=== PATIENT | male | born 1960 | race Caucasian/White ===

== ENCOUNTER 2021-04-11 10:50 | Inpatient (IN) | payer SELFPAY ==
[2021-04-11] VITALS (8 sets, daily range): BP systolic 134–155; BP diastolic 75–117; PULSE 62–85; RESP 6–17; TEMP 36.4–37; O2SAT 94–100; BMI 25.7; BMI 24.4
--- NOTE | 2021-04-11 11:21 | EKG12_ITS ---
Test Reason : ABN LABS Blood Pressure : / mmHG Vent. Rate : 065 BPM Atrial Rate : 065 BPM P-R Int : 156 ms QRS Dur : 094 ms QT Int : 404 ms P-R-T Axes : 032 009 038 degrees QTc Int : 420 ms Normal sinus rhythm Normal ECG Confirmed by ALENA DELGADO, JAM ([id number]), editor newspaper YASIR FRIEDMAN ([id number]) on 04/13/2021 9:03:06 AM Referred By: CHERISE/GRISELDA Confirmed By:JAM CARVAJAL MD
[2021-04-11] MEDS: 0.9% Normal Saline 1,000 ML 1000 ML IV (11:26)
[2021-04-11 11:28] LABS: Absolute Lymphocyte Count 0.35 X10^3/uL (0.83-4.51); Absolute Neutrophil Count 5.6 X10^3/uL (2.0-7.7); Basophil# 0.01 X10^3/uL; Basophil% 0.2 % (0-1); Eosinophil# 0.01 X10^3/uL; Eosinophils% 0.2 % (0-5); Hematocrit 38.1 % (40-54); Hemoglobin 13.4 g/dL (13.0-16.5); Lymphocyte # 0.35 X10^3/ul (0.83-4.51); Lymphocyte % 5.3 % (19-41); Mean Corp Hgb Conc 35.2 g/dL (32-36); Mean Corpuscular Hgb 29.8 pg (27.0-32.0); Mean Corpuscular Volume 84.7 fL (80-94); Mean Platelet Vol. 8.6 fl (6.2-12.0); Monocyte# 0.67 X10^3/uL; Monocyte% 10.1 % (0-10); NRBC Flagged by Analyzer 0 % (0-5); Neutrophil # 5.57 X10^3/uL (2.7-7.7); Neutrophil % 83.7 % (47-70); POSITIVE DIFFERENTIAL YES; Platelet Count 154 K/mm3 (150-450); RBC Distribution Width CV 11.9 % (11.6-14.6); RBC Distribution Width SD 36.1 fl (35.1-43.9); White Blood Count 6.6 K/mm3 (4.4-11.0)
[2021-04-11 11:29] LABS: Differential Indicated SCAN CRITERIA MET
[2021-04-11 11:42] LABS: ALB/GLOB Ratio 0.7 RATIO (0.9-2.4); AST(SGOT) 17 U/L (15-37); Alanine Aminotransfer ALT/SGPT 38 U/L (16-61); Albumin, Serum 3.3 g/dL (3.2-5.0); Alkaline Phosphatase 37 U/L (45-117); Anion Gap 11 (5-15); BUN 57 mg/dL (7-18); BUN/Creat Ratio 12.3 RATIO (10-20); Calcium,Total 9.3 mg/dL (8.5-10.1); Chloride 103 mmol/L (98-107); Creatinine, Serum 4.62 mg/dL (0.70-1.30); EST Glomerular Filtration Rate 14 mL/min (>60); Est Glom Filt Rate - Afr Amer 17 mL/min (>60); Estimated Creatinine Clearance 19.13 ml/min; Globulin 4.5 g/dL (2.2-4.2); Glucose 116 mg/dL (74-106); Potassium 3.3 mmol/L (3.5-5.1); Protein, Total 7.8 g/dL (6.4-8.2); Sodium Level 142 mmol/L (136-145)
[2021-04-11 11:48] LABS: Platelet Estimate ADEQUATE (ADEQ); Red Cell Morphology NORM C+C NORMAL (NORM C&C)
--- NOTE | 2021-04-11 11:55 | EDS_ITS ---
HPI History of Present Illness Chief Complaint: Abn Labs Informant: patient Onset/Context/Timing Onset: Weeks (1) Context: Gradual Onset Timing: Continuous Quality: Weakness Location: Generalized Worsened by: Nothing Relieved by: Nothing Narrative Narrative: Patient presents with acute kidney injury that was noticed today. Patient had outpatient labs done by Dr. Cannon which showed an elevated creatinine. Patient was treated for throat cancer with cisplatin. Patient admits to some generalized weakness. Patient also admits to decreased oral intake. Patient states he has received some IV fluids over the past few days. Patient denies any fevers or chills. Patient admits to some nausea and vomiting. Patient denies any chest pain or shortness of breath. [facility] Medical History Throat cancer Home Medications lorazepam 0.5 mg PO DAILY 04/11/21 [History Last Taken Unknown] nystatin 100,000 unit BUCCAL 4X/DAY 04/11/21 [History Last Taken Unknown] ondansetron [Zofran ODT] 8 mg PO Q8H PRN 04/11/21 [History Last Taken Unknown] promethazine 25 mg PO Q6H PRN 04/11/21 [History Last Taken Unknown] Allergy/AdvReac Type Severity Reaction Status Date / Time No Known Allergies Allergy Verified 04/11/21 10:53 Surgical History no surgical history no surgical history Social History Smoking Status: Never smoker ROS ROS ED Constitutional Constitutional ED: Denies chills or fever(s) Eyes Eyes: Denies blurry vision or change in vision ENT ENT ED: Denies rhinorrhea or sore throat Cardiovascular Cardiovascular: Denies chest pain or palpitations Respiratory/Chest Respiratory/Chest: Denies cough or dyspnea Gastrointestinal Gastrointestinal: Reports nausea and vomiting Genitourinary Genitourinary ED: Denies dysuria or hematuria Musculoskeletal Musculoskeletal: Denies back pain or neck pain Integumentary Denies abscess or rash Neurologic Neurologic: Reports weakness; Denies headache(s) Allergic/Immunologic Allergic/Immunologic ED: Denies mouth swelling or urticaria EXAM Physical Exam Const Vital Signs: 04/11/21 10:51 04/11/21 10:55 04/11/21 11:09 Temperature 97.6 F L Temperature Source Temporal Pulse Rate 85 Respiratory Rate 6 L 16 Respiratory Effort Normal Non-Labored Blood Pressure 155/117 H Blood Pressure Mean 129 Pulse Ox 99 Oxygen Delivery Method Room Air 04/11/21 12:51 Temperature Temperature Source Pulse Rate 69 Respiratory Rate 17 Respiratory Effort Blood Pressure 134/108 H Blood Pressure Mean 116 Pulse Ox 97 Oxygen Delivery Method Room Air Positive well nourished and well developed General Appearance ED: well developed HEENT Reports moist mucous membranes Eyes PERRL and EOMs intact bilaterally Neck supple and no JVD Resp normal respiratory effort and clear to auscultation bilaterally Cardio regular rate, regular rhythm and no murmurs GI normal to inspection, nondistended, normoactive bowel sounds and non-tender Palpation: soft Extremity normal to inspection General Extremety ED: Negative for edema or tenderness General Extremity: Negative for edema Neuro oriented x3, CN's II-XII intact bilaterally and no sensory deficits noted Sensorium / Orientation: alert Motor Exam: strength 5/5 throughout Psych mental status grossly normal Skin no rashes or lesions noted MDM MDM MDM Narrative Medical decision making narrative: Patient was given IV fluids here. EKG was obtained. On my interpretation, shows normal sinus rhythm with a rate of 65. There are no acute ST or T wave changes noted. CBC was essentially within normal limits. Comprehensive metabolic profile showed a BUN of 57 and creatinine of 4.62. Urinalysis does not show any evidence of urinary tract infection. Case was discussed with the hospitalist. She will admit the patient for observation. Patient understood and was agreeable with the plan. All questions were answered. Lab Data Attestation: I reviewed the patient's lab results. Labs: Laboratory Results - last 24 hr 04/11/21 04/11/21 04/11/21 11:02 11:02 12:00 WBC 6.6 RBC 4.50 L Hgb 13.4 Hct 38.1 L MCV 84.7 MCH 29.8 MCHC 35.2 RDW Std Deviation 36.1 RDW Coeff of Milli 11.9 Plt Count 154 MPV 8.6 Immature Gran % (Auto) 0.500 Neut % (Auto) 83.7 H Lymph % (Auto) 5.3 L [place] % (Auto) 10.1 H Eos % (Auto) 0.2 Baso % (Auto) 0.2 Absolute Neuts (auto) 5.6 Absolute Lymphs (auto) 0.35 L Nucleated RBC % 0 Platelet Estimate ADEQUATE RBC Morphology NORM C+C Sodium 142 Potassium 3.3 L Chloride 103 Carbon Dioxide 28.0 Anion Gap 11 BUN 57 H Creatinine 4.62 H Estim Creat Clear Calc 19.13 Est GFR (MDRD) Af Amer 17 L Est GFR (MDRD) Non-Af 14 L BUN/Creatinine Ratio 12.3 Glucose 116 H Calcium 9.3 Total Bilirubin 0.40 AST 17 ALT 38 Alkaline Phosphatase 37 L Total Protein 7.8 Albumin 3.3 Globulin 4.5 H Albumin/Globulin Ratio 0.7 L Urine Color Yellow Urine Clarity Clear Urine pH 5.0 Ur Specific [place] 1.015 Urine Protein 100 H Urine Glucose (UA) Normal Urine Ketones Negative Urine Occult Blood 150 H Urine Nitrite Negative Urine Bilirubin Negative Urine Urobilinogen Normal Ur Leukocyte Esterase Negative Urine RBC 10-25 SEEN Urine WBC 0 SEEN Ur Squamous Epith Cells 0 SEEN Urine Bacteria 0 SEEN Urine Mucus 0 SEEN EKG Initial EKG: Attestation: I personally reviewed and interpreted this EKG as follows: Interpretation: Sinus Rhythm (65) and No Acute Injury Pattern Treatment and Re-Evaluation Vital Sign Attestation:: Vital signs reviewed prior to admission. They are stable. Discharge Plan Dx/Rx/DC Orders Clinical Impression: MG (acute kidney injury) Disposition Disposition: Acute Care [facility]
[2021-04-11 12:06] LABS: Bacteria 0 SEEN /hpf (None Seen); Mucous, Urine 0 SEEN /hpf (<or=2+); Squamous Epithelial Cells - UA 0 SEEN /hpf (0-5); White Blood Cells 0 SEEN /hpf (0-5)
[2021-04-11 12:08] LABS: Color, Urine Yellow (Yellow); Glucose, Dipstick Normal (Normal); Ketone-Dipstick Negative (Negative); Leukocyte Esterase-Dipstick Negative /ul (Negative); Nitrite-Dipstick Negative (Negative); Occult Blood-Urine 150 /ul (Negative); Protein-Dipstick 100 mg/dl (Negative); Specific Gravity, Urine 1.015 (1.002-1.030); Urine Bilirubin Dipstick Negative (Negative); Urine Clarity Clear (Clear); Urine Urobilinogen Normal (Normal)
[2021-04-11 12:15] LABS: Red Blood Cells-Urine 10-25 SEEN /hpf (0-5)
--- NOTE | 2021-04-11 13:10 | US_ITS ---
STUDY: RENAL ULTRASOUND - COMPLETE REASON FOR EXAM: Male, 60 years old. MG TECHNIQUE: Ultrasound evaluation of the kidneys was performed with real-time and static arteaga-scale imaging. COMPARISON: None. FINDINGS: RIGHT KIDNEY: Normal location of the right kidney, which is normal in size. The right kidney measures 14 cm x 6.9 cm x 6.9 cm. There is a normal cortex of the right kidney. The renal cortex measures 1.5 cm. There is no right renal mass or cyst. There are no right renal calculi. There is no right hydronephrosis. DISTAL RIGHT URETER: There is non-visualization of the distal right ureter. There is no demonstrated right ureterovesical junction calculus. There is a visualized right ureteral jet. LEFT KIDNEY: Normal location of the left kidney, which is normal in size. The left kidney measures 12.7 cm x 5 cm x 7.0 cm. There is a normal cortex of the left kidney. The renal cortex measures 1.8 cm. There is no left renal mass or cyst. There are no left renal calculi. There is no left hydronephrosis. DISTAL LEFT URETER: There is non-visualization of the distal left ureter. There is no demonstrated left ureterovesical junction calculus. There is a visualized left ureteral jet. BLADDER: The distended urinary bladder has a volume of 223 ml. There is a normal wall thickness of the distended urinary bladder. There is no demonstrated mass within the urinary bladder. There are no demonstrated bladder calculi. US/Kidney and Bladder IMPRESSION: Normal ultrasound of the kidneys and urinary bladder. Electronically Signed: Tino Headley MD at 14:33 EDT , Service support ,
[2021-04-11 13:41] LABS: Urine Sodium 30 mmol/L (Not Establ.)
--- NOTE | 2021-04-11 13:46 | PCM.HP.STD ---
HPI - General General Date of Admission: 04/11/21 Date of Service: 04/11/21 Chief Complaint: Abnormal labs HPI Narrative GIGI ZIEGLER, is a 60 M who presented to the emergency department at [facility] on 04/11/2021 with abnormal laboratory data. 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 He started chemotherapy with cisplatin on March 13 and just completed his second cycle which is his last cycle. He is also been receiving radiation and has had 4 of 6 radiation sessions. He is following with Dr. Petersen and Dr. Cannon. Surveillance laboratory was drawn today and his serum creatinine was noted to be elevated at 4.62 and he was therefore referred to the emergency department. His baseline creatinine before undergoing chemotherapy was 1.06 and a week ago it was 1.36. He admits to having decreased oral intake as his taste is abnormal and he is having nausea associated with his chemotherapy. He is having no swallowing difficulties. He admits to losing approximately 20 pounds since starting his chemotherapy. He has not tried any supplemental drinks and since his last chemotherapy he states his oral intake has been a lot less overall. He reports that he still is making good urine. He complains of having associated generalized weakness, fatigue, nausea, taste changes, and weight loss. His vital signs in the emergency department were unremarkable. His CBC was unremarkable. His BMP shows a normal sodium, potassium of 3.3, anion gap of 11, a BUN of 57 and a serum creatinine of 4.62. His estimated GFR is 14 mL/min. His LFTs are within normal limits. His UA shows slight proteinuria and hematuria but is otherwise unremarkable. His urine specific gravity is 1.015. An EKG was obtained and was normal sinus rhythm without ST-T wave changes consistent with ischemia. He was given 1 L of normal saline in the emergency department and request for admission was made. He will be admitted as observation to the medical floor. [facility] Medical History Throat cancer Home Medications lorazepam 0.5 mg PO DAILY 04/11/21 [History Last Taken 04/10/21] nystatin 100,000 unit BUCCAL 4X/DAY 04/11/21 [History Last Taken 04/10/21] ondansetron [Zofran ODT] 8 mg PO Q8H PRN 04/11/21 [History Last Taken 04/10/21] promethazine 25 mg PO Q6H PRN 04/11/21 [History Last Taken 04/10/21] Allergy/AdvReac Type Severity Reaction Status Date / Time No Known Allergies Allergy Verified 04/11/21 10:53 no significant family history Surgical History no surgical history no surgical history Social History (Updated 04/11/21 @ 13:[address] 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 Smoking Status: Never smoker alcohol intake: never substance use type: does not use ROS Constitutional Constitutional: Reports anorexia, change in weight, fatigue, malaise and weakness; Denies chills, fever(s), night sweats or other Eyes Eyes: Denies blurry vision, change in eye color, change in vision, discharge from eye(s), double vision, erythema, eye pain, loss of vision or other ENT HEENT: Reports other Details: Change in taste ; Denies abnormal hearing, dysphagia, ear pain, epistaxis, headache(s), hearing loss, nasal congestion, nasal discharge, post nasal drip, sinus pressure or sore throat Cardiovascular Cardiovascular: Denies chest pain, claudication, dyspnea on exertion, edema, lightheadedness, orthopnea, palpitations, paroxysmal nocturnal dyspnea, rapid heart rate, syncope or other Respiratory/Chest Respiratory/Chest: Denies cough, dyspnea, excessive phlegm production, hemoptysis, productive cough, shortness of breath at rest, shortness of breath with exertion, wheezing or other Gastrointestinal Gastrointestinal: Reports nausea; Denies abdominal pain, coffee ground emesis, constipation, diarrhea, dyspepsia, hematemesis, hematochezia, loose stools, melena, vomiting or other Genitourinary Genitourinary: Reports urinary frequency; Denies burning urination, difficulty urinating, dysuria, hematuria, nocturia, urinary hesitancy, urinary incontinence, urinary urgency or other Musculoskeletal Musculoskeletal: Denies arthralgias, back pain, joint pain, joint stiffness, joint swelling, myalgias, neck pain or other Neurologic Neurologic: Denies abnormal gait, abnormal speech, confusion, disequilibrium, dizziness, focal weakness, headache(s), numbness, paresthesias, seizure-like activity, seizures, syncope, tingling, tremor(s) or other Psychiatric Psychiatric: Denies anxiety, depression, homicidal ideation, suicidal ideation or other Endocrine Endocrinology: Denies change in body appearance, cold intolerance, excessive sweating, heat intolerance, polydipsia, polyuria or other Hematologic/Lymphatic Hematologic/Lymphatic: Denies anemia, easy bleeding, easy bruising, lymphadenopathy or other Allergic/Immunologic Allergic/Immunologic: Denies rhinitis, hives, eczemia, asthma or other Vital Signs Vital Signs Vital Signs: 04/11/21 10:51 04/11/21 10:55 04/11/21 11:09 Temperature 97.6 F L Temperature Source Temporal Pulse Rate 85 Respiratory Rate 6 L 16 Respiratory Effort Normal Non-Labored Blood Pressure 155/117 H Blood Pressure Mean 129 Pulse Ox 99 Oxygen Delivery Method Room Air 04/11/21 12:51 04/11/21 13:09 Temperature 97.9 F Temperature Source Temporal Pulse Rate 69 69 Respiratory Rate 17 17 Respiratory Effort Blood Pressure 134/108 H 137/90 H Blood Pressure Mean 116 105 Pulse Ox 97 98 Oxygen Delivery Method Room Air Room Air Weight Weight: 86.183 kg Body Mass Index (BMI) 25.7 Physical Exam Const alert, oriented x3, no apparent distress and average body habitus Constitutional Narrative: Upper middle-aged white male sitting up in bed, appears comfortable, nontoxic, at bedside, very pleasant General Appearance: cooperative HEENT normocephalic, head/scalp atraumatic, hearing grossly normal bilaterally, moist oral mucous membranes and oropharynx normal HEENT Narrative: Fair dentition's with many fillings, no thrush noted, no oral lesions, Mallampati 2 Mouth: oral and palatal mucosa normal Eyes PERRL, EOMs intact bilaterally and conjunctivae normal Eyes Narrative: No scleral icterus Neck no lymphadenopathy, supple, no JVD and no carotid bruits Neck Narrative: Trachea midline, and no thyroid enlargement Resp normal respiratory effort, no retractions, no use of accessory muscles and clear to auscultation bilaterally Auscultation: Negative for crackles, rales, rhonchi or wheezes Cardio regular rate, regular rhythm, S1 normal heart sound, S2 normal heart sound, no murmurs, no rub, no gallops, no clicks and no JVD GI normal to inspection, nondistended, normoactive bowel sounds, soft to palpation, non-tender and non-distended; Negative for hepatosplenomegaly Extremity normal to inspection, full ROM and no clubbing, cyanosis or edema Peripheral Pulses: Yes pulses 2+ throughout Skin no rashes or lesions noted, no wounds, skin turgor normal, no jaundice, no petechiae and no mottling Neuro oriented x3, CN's II-XII intact bilaterally, moves all extremities and no focal motor deficits Sensorium / Orientation: awake and alert Speech: speech normal Motor Exam: strength 5/5 throughout Psych affect normal Results Lab / Micro Data Attestation: I reviewed the patient's lab results. Result Diagrams: 04/11/21 11:02 04/11/21 11:02 Labs: Laboratory Results - last 24 hr 04/11/21 11:02: WBC 6.6, RBC 4.50 L, Hgb 13.4, Hct 38.1 L, MCV 84.7, MCH 29.8, MCHC 35.2, RDW Std Deviation 36.1, RDW Coeff of Milli 11.9, Plt Count 154, MPV 8.6, Immature Gran % (Auto) 0.500, Neut % (Auto) 83.7 H, Lymph % (Auto) 5.3 L, [place] % (Auto) 10.1 H, Eos % (Auto) 0.2, Baso % (Auto) 0.2, Absolute Neuts (auto) 5.6, Absolute Lymphs (auto) 0.35 L, Nucleated RBC % 0, Platelet Estimate ADEQUATE, RBC Morphology NORM C+C 04/11/21 11:02: Sodium 142, Potassium 3.3 L, Chloride 103, Carbon Dioxide 28.0, Anion Gap 11, BUN 57 H, Creatinine 4.62 H, Estim Creat Clear Calc 19.13, Est GFR (MDRD) Af Amer 17 L, Est GFR (MDRD) Non-Af 14 L, BUN/Creatinine Ratio 12.3, Glucose 116 H, Calcium 9.3, Total Bilirubin 0.40, AST 17, ALT 38, Alkaline Phosphatase 37 L, Total Protein 7.8, Albumin 3.3, Globulin 4.5 H, Albumin/Globulin Ratio 0.7 L 04/11/21 12:00: Urine Color Yellow, Urine Clarity Clear, Urine pH 5.0, Ur Specific [place] 1.015, Urine Protein 100 H, Urine Glucose (UA) Normal, Urine Ketones Negative, Urine Occult Blood 150 H, Urine Nitrite Negative, Urine Bilirubin Negative, Urine Urobilinogen Normal, Ur Leukocyte Esterase Negative, Urine RBC 10-25 SEEN, Urine WBC 0 SEEN, Ur Squamous Epith Cells 0 SEEN, Urine Bacteria 0 SEEN, Urine Mucus 0 SEEN 04/11/21 12:00: Ur Random Sodium 30, Urine Creatinine 143.00 Assessment & Plan Assessment/Plan (1) Hypokalemia: (2) Microscopic hematuria: PLAN: MG secondary to cisplatin and dehydration -This is nonoliguric -No need for SWEEP MOLDER -IV fluids at 100 cc/h -Check retroperitoneal ultrasound -Check urine sodium, creatinine, eosinophils -UA noted -Consult nephrology Hypokalemia -60 mEq today -Check a.m. magnesium level -Repeat in a.m. Microscopic hematuria -Once MG has improved would recommend repeat UA -No further analysis at this time -If does not resolve may need cytology Severe malnutrition -Patient with decreased body weight of 20 pounds since 03/13/2021, decreased oral intake, decreased lean body mass -Patient with significant decreased p.o. intake -Changes in taste and nausea seems to be inciting factors -Supplements added -Consult dietitian DVT prophylaxis -Heparin 3 times daily -SCDs CODE STATUS -Full code Charges/Coding Visit Charges Inpatient E&M: 13527 Init Hosp L3
[2021-04-11] MEDS: Lactated Ringers 1,000 ML 100 ML IV (14:52)
--- NOTE | 2021-04-11 15:52 | CON.PCM.RE_ITS ---
Assessment & Plan Assessment/Plan (1) MG (acute kidney injury): (2) Hypokalemia: PLAN: Nonoliguric, hypovolemic MG with normal baseline Creatinine. On March 14, 2021 creatinine 0.97 mg/dL, April 04 creatinine 1.25 mg/dL, April 07 creatinine 1.59 mg/dL, creatinine 4.62 mg/dL in the ER today; MG likely from cisplatin with profound volume depletion/poor oral intake/weight loss. No NSAIDs. Renal US ordered to rule out any obstructive process. At this time there is no acute indication for PRODUCTION HARDENER. Patient is significantly hypovolemic and an unintentional weight loss of at least 25 pounds over past 2-3 weeks. Recommend to continue IV fluids as you are doing for volume expansion. Antiemetics as needed for persistent nausea. Recommend strict UOP measurement. Patient does not need any renal diet restrictions. Replace potassium as ordered, K+ 3.3. Reviewed with patient and his who is at bedside should renal function worsen and or urine output declines he may need PRODUCTION HARDENER but at this time there is no indication for PRODUCTION HARDENER. Questions answered. Patient has optimistic outlook. Further orders forthcoming as hospitalization evolves. Thank you for allowing us participate in the care of Mr. Jiménez, please contact us should questions arise. 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 He presented to the emergency room today with abnormal laboratory data, elevated Creatinine. Patient had his first dose of cisplatin on March 13, and had second dose on April 04. Patient also has begun radiation therapy. Patient reports that since starting cisplatin his appetite has been poor, he has had an unintentional weight loss of 25 pounds. He has had a couple bouts of emesis. Complains of nausea. Denies dizziness. Denies rash. Denies NSAIDs. He denies any urinary habit changes including increased, decreased urine output, hematuria or dysuria. Patient did receive IV fluids in the infusion center last and Sunday. Patient's creatinine was 0.97 mg/dL on March 14. [facility] Medical History (Updated 04/11/21 @ 14:35 by Lia Duong) Throat cancer Home Medications lorazepam 0.5 mg PO DAILY 04/11/21 [History Last Taken 04/10/21] nystatin 100,000 unit BUCCAL 4X/DAY 04/11/21 [History Last Taken 04/10/21] ondansetron [Zofran ODT] 8 mg PO Q8H PRN 04/11/21 [History Last Taken 04/10/21] promethazine 25 mg PO Q6H PRN 04/11/21 [History Last Taken 04/10/21] Allergy/AdvReac Type Severity Reaction Status Date / Time No Known Allergies Allergy Verified 04/11/21 10:53 Family History no significant family his Surgical History no surgical history Social History (Updated 04/11/21 @ 13:[address] 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 Oral mucosa is dry, lips dry Cardiovascular: RRR Abdomen: Soft, nontender Respiratory: Lung sounds clear anteriorly and posteriorly, no wheezes rhonchi rales Extremities: No edema Lab / Micro Data Result Diagrams: 04/11/21 11:02 04/11/21 11:02 Labs: Laboratory Results - last 24 hr 04/11/21 11:02: WBC 6.6, RBC 4.50 L, Hgb 13.4, Hct 38.1 L, MCV 84.7, MCH 29.8, MCHC 35.2, RDW Std Deviation 36.1, RDW Coeff of Milli 11.9, Plt Count 154, MPV 8.6, Immature Gran % (Auto) 0.500, Neut % (Auto) 83.7 H, Lymph % (Auto) 5.3 L, [place] % (Auto) 10.1 H, Eos % (Auto) 0.2, Baso % (Auto) 0.2, Absolute Neuts (auto) 5.6, Absolute Lymphs (auto) 0.35 L, Nucleated RBC % 0, Platelet Estimate ADEQUATE, RBC Morphology NORM C+C 04/11/21 11:02: Sodium 142, Potassium 3.3 L, Chloride 103, Carbon Dioxide 28.0, Anion Gap 11, BUN 57 H, Creatinine 4.62 H, Estim Creat Clear Calc 19.13, Est GFR (MDRD) Af Amer 17 L, Est GFR (MDRD) Non-Af 14 L, BUN/Creatinine Ratio 12.3, Glucose 116 H, Calcium 9.3, Total Bilirubin 0.40, AST 17, ALT 38, Alkaline Phosphatase 37 L, Total Protein 7.8, Albumin 3.3, Globulin 4.5 H, Albumin/Globulin Ratio 0.7 L 04/11/21 12:00: Urine Color Yellow, Urine Clarity Clear, Urine pH 5.0, Ur Specific [place] 1.015, Urine Protein 100 H, Urine Glucose (UA) Normal, Urine Ketones Negative, Urine Occult Blood 150 H, Urine Nitrite Negative, Urine Bilirubin Negative, Urine Urobilinogen Normal, Ur Leukocyte Esterase Negative, Urine RBC 10-25 SEEN, Urine WBC 0 SEEN, Ur Squamous Epith Cells 0 SEEN, Urine Bacteria 0 SEEN, Urine Mucus 0 SEEN 04/11/21 12:00: Ur Random Sodium 30, Urine Creatinine 143.00 Radiology Impression Renal Ultrasound 04/11/21 13:10 IMPRESSION: Normal ultrasound of the kidneys and urinary bladder. Electronically Signed: Tino Headley MD at 14:33 EDT , Service support ,
[2021-04-11] MEDS: Potassium Chloride Oral Tablet 20 MEQ 60 MEQ PO (16:16)
--- NOTE | 2021-04-11 18:16 | PCS.PANDOC ---
PANDEMIC DOCUMENTATION INITIATED: Date: 01/31/2021 Time: 190
[2021-04-11] MEDS: NYSTATIN 500,000 UNIT/5 ML UDC 100000 UNIT PO ×2 (18:24→21:58)
[2021-04-11] MEDS: Heparin Injection (Vial) 5,000 UNIT/ML VIAL 5000 UNIT SC (22:01)
[2021-04-12] MEDS: Lactated Ringers 1,000 ML 100 ML IV ×2 (00:42→10:17)
[2021-04-12] MEDS: Ondansetron ODT 4 MG Tablet 8 MG PO ×2 (00:52→20:30)
[2021-04-12 03:45] VITALS: BP 133/76; PULSE 63; RESP 16; TEMP 36.4; O2SAT 94
[2021-04-12 07:10] LABS: ALB/GLOB Ratio 0.7 RATIO (0.9-2.4); AST(SGOT) 12 U/L (15-37); Alanine Aminotransfer ALT/SGPT 22 U/L (16-61); Albumin, Serum 2.4 g/dL (3.2-5.0); Alkaline Phosphatase 27 U/L (45-117); Anion Gap 10 (5-15); BUN 49 mg/dL (7-18); BUN/Creat Ratio 14.8 RATIO (10-20); Calcium,Total 8.3 mg/dL (8.5-10.1); Chloride 109 mmol/L (98-107); EST Glomerular Filtration Rate 21 mL/min (>60); Est Glom Filt Rate - Afr Amer 25 mL/min (>60); Estimated Creatinine Clearance 26.78 ml/min; Globulin 3.6 g/dL (2.2-4.2); Glucose 104 mg/dL (74-106); Potassium 3.6 mmol/L (3.5-5.1); Sodium Level 146 mmol/L (136-145); Thyroid Stim Hormone (TSH) 0.97 uIU/mL (0.358-3.74)
[2021-04-12 09:00] VITALS: BP 138/76; PULSE 65; RESP 16; TEMP 36.6; O2SAT 96
[2021-04-12] MEDS: NYSTATIN 500,000 UNIT/5 ML UDC 100000 UNIT PO ×4 (10:13→20:32)
[2021-04-12] MEDS: Heparin Injection (Vial) 5,000 UNIT/ML VIAL 5000 UNIT SC ×2 (10:13→20:32)
[2021-04-12] MEDS: LORazepam 0.5 MG Tablet PO (10:13)
--- NOTE | 2021-04-12 12:20 | CASEMGMT ---
RN CM Face to Face with patient for initial transition planning/care coordination assessment. RN CM introduced self and role at [facility]. Patient lying in bed, alert and oriented, at bedside. Patient willing to participate in assessment and is able to answer all questions appropriately. Care providers, pharmacy, and demographics verified. Patient wishes to discharge home, denies need for home health at this time. Patient states he has no further needs or concerns at this time. CM to follow for discharge planning needs that may arise. PCP: Armando He Specialists: Trinity, oncologist; Liban, radiologist Preferred Pharmacy: [facility] Insurance: selfpay Prescription Benefit: none Living Will/HPOA: none LNOK: Living Arrangements: Patient lives with in a 2 story home. Patient states he is independent and able to ambulate stairs. Transportation: self, DME/HHC: Patient denies DME at home. Patient denies previous HHC or SNF. Disposition Plan: Patient to discharge home with family support and follow-up plans in place. Lia ROB, RN, CM
--- NOTE | 2021-04-12 13:00 | PCM.PN.REN ---
Subjective Subjective Sitting up in bed, eating lunch. at bedside. States he feels better today, denies any recent nausea or emesis. Objective Data Objective Data Vital Signs: Vital Signs Temp Pulse Resp BP Pulse Ox 97.5 F L 63 16 133/76 H 94 04/12/21 03:45 04/12/21 03:45 04/12/21 03:45 04/12/21 03:45 04/12/21 03:45 Oxygen Delivery Method Room Air Weight: 81.6 kg Body Mass Index (BMI) 24.4 Intake & Output: Intake and Output for Last 24 Hours 04/10/21 04/11/21 04/12/21 23:59 23:59 23:59 Intake Total 1840 / 1840 2091.66 / 2091.66 Output Total 900 / 900 1000 / 1000 Balance 940 / 940 1091.66 / 1091.66 Medical Nutrition Assessment Dietitian: Malnutrition Criteria Met Start: 04/11/21 17:23 Freq: Status: Active Protocol: Document 04/12/21 11:31 RMA (Rec: 04/12/21 11:31 RMA [id number]) Nutrition Malnutrition Evidence of Malnutrition Exists Yes Malnutrition (severe): Acute Illness/Injury Evidenced By Suboptimal Energy Intake ( Severe),Weight Loss (Severe) Clinical Problem Acute Disease or Injury Related Malnutrition Etiology Severe protein/calorie malnutrition in the context of acute illness related to inadequate oral intake; increased energy expenditure/ increased nutrition needs due to catabolic illness Signs/Symptoms as evidenced by 12% wt loss x past 1 month and oral intake meeting less than 50% estimated nutrition needs x past 2-4 weeks Status Active Problem Recommendation Dietitian Recommendations/Changes 1.) Continue regular diet as intake established; monitor need for renal diet restriction. 2.) Continue 120ml ensure enlive 4 times per day w/ medpass as ordered for extra 700 calories and 40 gm protein . 3.) Will add 240ml Rausch ensure clear TID w/ meals as tolerated for extra 720 calories and 24 gm protein per day. 4.) Will add strawberry milkshake (ice cream/whole milk) and vanilla ice cream Q meal tray as tolerated for additional calories and protein as consumed. 5.) May need to consider enteral nutrition support if PO fails and weight loss continues. Lab / Micro Data Result Diagrams: 04/11/21 11:02 04/12/21 06:16 Labs: Laboratory Results - last 24 hr 04/11/21 12:00: Ur Random Sodium 30, Urine Creatinine 143.00 04/12/21 06:16: Sodium 146 H, Potassium 3.6, Chloride 109 H, Carbon Dioxide 27.0, Anion Gap 10, BUN 49 H, Creatinine 3.30 H, Estim Creat Clear Calc 26.78, Est GFR (MDRD) Af Amer 25 L, Est GFR (MDRD) Non-Af 21 L, BUN/Creatinine Ratio 14.8, Glucose 104, Calcium 8.3 L, Total Bilirubin 0.30, AST 12 L, ALT 22, Alkaline Phosphatase 27 L, Total Protein 6.0 L, Albumin 2.4 L, Globulin 3.6, Albumin/Globulin Ratio 0.7 L, TSH 0.97 Radiography Diagnostic Testing: Radiology Impression Renal Ultrasound 04/11/21 13:10 IMPRESSION: Normal ultrasound of the kidneys and urinary bladder. Electronically Signed: Tino Headley MD at 14:33 EDT , Service support , Physical Exam Narrative HEENT: Head is normocephalic, atraumatic. Oral mucosa moist. Lips dry Respiratory: Lung sounds clear anteriorly and posteriorly, no wheezes rhonchi rales Cardiovascular: S1-S2, rhythm and rate regular Extremities: No edema Assessment & Plan Assessment/Plan (1) MG (acute kidney injury): (2) Hypokalemia: PLAN: - Nonoliguric, hypovolemic MG with normal baseline Creatinine. March 14, 2021 creatinine 0.97 mg/dL. Creatinine peaked at 4.62 mg/dL on 04/11 and today his creatinine has improved to 3.30 mg/dL. Patient received 2doses cisplatin (last dose 04/04) with profound volume depletion/poor oral intake/weight loss (25 pounds over 2-3weeks). No NSAIDs. Renal US no hydro; normal ultrasound of kidneys and bladder. 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 Recommend to continue IV fluids for volume expansion. Monitor sodium trends, today sodium 146 (previous 142). Antiemetics as needed for nausea. Recommend strict UOP measurement. Patient does not need any renal diet restrictions. -We will repeat urinalysis. UA yesterday did show occult blood 150, protein 100. -Potassium improved after replacement. Patient does not need any renal diet restrictions. Continue protein supplement as ordered..
[2021-04-12 13:38] LABS: Magnesium 2.1 mg/dL (1.6-2.6); Phosphorus 4.4 mg/dL (2.5-4.9)
--- NOTE | 2021-04-12 13:39 | PCM.PN.HOSP ---
Subjective Subjective Follow-up on MG: Patient was seen and examined. He is still nauseous but states that he feels overall improved. His blood pressure and urine output has been good. Objective Data Objective Data Vital Signs: Vital Signs Temp Pulse Resp BP Pulse Ox 97.5 F L 63 16 133/76 H 94 04/12/21 03:45 04/12/21 03:45 04/12/21 03:45 04/12/21 03:45 04/12/21 03:45 Oxygen Delivery Method Room Air Weight: 81.6 kg Body Mass Index (BMI) 24.4 Intake & Output: Intake and Output for Last 24 Hours 04/10/21 04/11/21 04/12/21 23:59 23:59 23:59 Intake Total 1840 / 1840 2091.66 / 2091.66 Output Total 900 / 900 1000 / 1000 Balance 940 / 940 1091.66 / 1091.66 Medical Nutrition Assessment Dietitian: Malnutrition Criteria Met Start: 04/11/21 17:23 Freq: Status: Active Protocol: Document 04/12/21 11:31 RMA (Rec: 04/12/21 11:31 RMA [id number]) Nutrition Malnutrition Evidence of Malnutrition Exists Yes Malnutrition (severe): Acute Illness/Injury Evidenced By Suboptimal Energy Intake ( Severe),Weight Loss (Severe) Clinical Problem Acute Disease or Injury Related Malnutrition Etiology Severe protein/calorie malnutrition in the context of acute illness related to inadequate oral intake; increased energy expenditure/ increased nutrition needs due to catabolic illness Signs/Symptoms as evidenced by 12% wt loss x past 1 month and oral intake meeting less than 50% estimated nutrition needs x past 2-4 weeks Status Active Problem Recommendation Dietitian Recommendations/Changes 1.) Continue regular diet as intake established; monitor need for renal diet restriction. 2.) Continue 120ml ensure enlive 4 times per day w/ medpass as ordered for extra 700 calories and 40 gm protein . 3.) Will add 240ml Rausch ensure clear TID w/ meals as tolerated for extra 720 calories and 24 gm protein per day. 4.) Will add strawberry milkshake (ice cream/whole milk) and vanilla ice cream Q meal tray as tolerated for additional calories and protein as consumed. 5.) May need to consider enteral nutrition support if PO fails and weight loss continues. Lab / Micro Data Result Diagrams: 04/11/21 11:02 04/12/21 06:16 Labs: Laboratory Results - last 24 hr 04/11/21 12:00: Ur Random Sodium 30, Urine Creatinine 143.00 04/12/21 06:16: Sodium 146 H, Potassium 3.6, Chloride 109 H, Carbon Dioxide 27.0, Anion Gap 10, BUN 49 H, Creatinine 3.30 H, Estim Creat Clear Calc 26.78, Est GFR (MDRD) Af Amer 25 L, Est GFR (MDRD) Non-Af 21 L, BUN/Creatinine Ratio 14.8, Glucose 104, Calcium 8.3 L, Total Bilirubin 0.30, AST 12 L, ALT 22, Alkaline Phosphatase 27 L, Total Protein 6.0 L, Albumin 2.4 L, Globulin 3.6, Albumin/Globulin Ratio 0.7 L, TSH 0.97 04/12/21 06:16: Phosphorus 4.4, Magnesium 2.1 Radiography Diagnostic Testing: Radiology Impression Renal Ultrasound 04/11/21 13:10 IMPRESSION: Normal ultrasound of the kidneys and urinary bladder. Electronically Signed: Tino Headley MD at 14:33 EDT , Service support , Physical Exam Narrative Physical exam: General: Alert, Oriented x3, Cooperative, appears frail, well hydrated HEENT: Atraumatic Oral: Moist Mucosa Neck: Supple Lungs: Clear to auscultation Cardiovascular: HS I+II, regular, no murmurs Abdomen: Bowel Sounds Present, Soft, Non Tender Extremities: No edema Assessment & Plan Assessment/Plan (1) Hypokalemia: (2) Microscopic hematuria: PLAN: 1. MG, prerenal, nonoliguric secondary to dehydration and cisplatin side effect Creatinine appears to be improving, currently 3.3, down from 4.62 Renal ultrasound is unremarkable FeNa is 0.68 2. Hypokalemia, resolved 3. Microscopic hematuria, repeat urinalysis is pending 4. Severe malnutrition, BMI 215, cooling pan tender consulted, and supplements Charges/Coding Visit Charges Inpatient E&M: 35703 Subs Hosp L2
[2021-04-12 15:00] VITALS: BP 128/80; PULSE 69; RESP 16; TEMP 36.9; O2SAT 96
[2021-04-12 18:02] LABS: Color, Urine Yellow (Yellow); Glucose, Dipstick Normal (Normal); Ketone-Dipstick Negative (Negative); Leukocyte Esterase-Dipstick Negative /ul (Negative); Nitrite-Dipstick Negative (Negative); Occult Blood-Urine 50 /ul (Negative); Protein-Dipstick 100 mg/dl (Negative); Urine Bilirubin Dipstick Negative (Negative); Urine Clarity Clear (Clear); Urine Urobilinogen Normal (Normal)
[2021-04-12] MEDS: 0.45% Normal Saline 1,000 ML 100 ML IV (20:28)
[2021-04-12 20:39] VITALS: BP 151/96; PULSE 70; RESP 18; TEMP 36.7; O2SAT 99
[2021-04-13] MEDS: 0.45% Normal Saline 1,000 ML 100 ML IV ×2 (05:07→16:13)
[2021-04-13 05:09] VITALS: BP 141/82; PULSE 64; RESP 18; TEMP 36.8; O2SAT 97
[2021-04-13 07:29] LABS: Anion Gap 8 (5-15); BUN 37 mg/dL (7-18); BUN/Creat Ratio 14.6 RATIO (10-20); Calcium,Total 8.1 mg/dL (8.5-10.1); Chloride 108 mmol/L (98-107); Creatinine, Serum 2.54 mg/dL (0.70-1.30); EST Glomerular Filtration Rate 28 mL/min (>60); Est Glom Filt Rate - Afr Amer 34 mL/min (>60); Estimated Creatinine Clearance 34.79 ml/min; Glucose 134 mg/dL (74-106); Magnesium 1.7 mg/dL (1.6-2.6); Potassium 2.8 mmol/L (3.5-5.1); Sodium Level 145 mmol/L (136-145)
[2021-04-13 09:18] VITALS: BP 140/70; PULSE 72; RESP 16; TEMP 36.5; O2SAT 96
[2021-04-13] MEDS: NYSTATIN 500,000 UNIT/5 ML UDC 100000 UNIT PO (09:24)
[2021-04-13] MEDS: Magnesium Chloride 64 MG Delay Rel.Tablet 128 MG PO (09:25)
[2021-04-13] MEDS: Heparin Injection (Vial) 5,000 UNIT/ML VIAL 5000 UNIT SC (09:26)
[2021-04-13] MEDS: Potassium Chloride 10mEq/100mL 10 MEQ/100 ML IV.SOLN. 100 MEQ IV BOLUS ×8 (09:40→20:39)
--- NOTE | 2021-04-13 11:51 | PN.HOSP_ITS ---
Subjective Subjective Follow-up on MG: Patient was seen and examined. He complains of severe nausea. He has no appetite or sense of taste. Denies any diarrhea Objective Data Objective Data Vital Signs: Vital Signs Temp Pulse Resp BP Pulse Ox 97.7 F L 72 16 140/70 H 96 04/13/21 09:18 04/13/21 09:18 04/13/21 09:18 04/13/21 09:18 04/13/21 09:18 Oxygen Delivery Method Room Air Weight: 81.6 kg Body Mass Index (BMI) 24.4 Intake & Output: Intake and Output for Last 24 Hours 04/11/21 04/12/21 04/13/21 23:59 23:59 23:59 Intake Total 1840 / 1840 3351.66 / 3351.66 1145 / 1145 Output Total 900 / 900 3050 / 3050 700 / 700 Balance 940 / 940 301.66 / 301.66 445 / 445 Medical Nutrition Assessment Dietitian: Malnutrition Criteria Met Start: 04/11/21 1 7:23 Freq: Status: Active Protocol: Document 04/12/21 11:31 RMA (Rec: 04/12/21 11:31 RMA [id number]) Nutrition Malnutrition Evidence of Malnutrition Exists Yes Malnutrition (severe): Acute Illness/Injury Evidenced By Suboptimal Energy Intake ( Severe),Weight Loss (Severe) Clinical Problem Acute Disease or Injury Related Malnutrition Etiology Severe protein/calorie malnutrition in the context of acute illness related to inadequate oral intake; increased energy expenditure/ increased nutrition needs due to catabolic illness Signs/Symptoms as evidenced by 12% wt loss x past 1 month and oral intake meeting less than 50% estimated nutrition needs x past 2-4 weeks Status Active Problem Recommendation Dietitian Recommendations/Changes 1.) Continue regular diet as intake established; monitor need for renal diet restriction. 2.) Continue 120ml ensure enlive 4 times per day w/ medpass as ordered for extra 700 calories and 40 gm protein . 3.) Will add 240ml Rausch ensure clear TID w/ meals as tolerated for extra 720 calories and 24 gm protein per day. 4.) Will add strawberry milkshake (ice cream/whole milk) and vanilla ice cream Q meal tray as tolerated for additional calories and protein as consumed. 5.) May need to consider enteral nutrition support if PO fails and weight loss continues. Lab / Micro Data Result Diagrams: 04/11/21 11:02 04/13/21 06:40 Labs: Laboratory Results - last 24 hr 04/12/21 06:16: Phosphorus 4.4, Magnesium 2.1 04/12/21 17:40: Urine Color Yellow, Urine Clarity Clear, Urine pH 6.0, Ur Spe cific Maynard 1.010, Urine Protein 100 H, Urine Glucose (UA) Normal, Urine Ke tones Negative, Urine Occult Blood 50 H, Urine Nitrite Negative, Urine Bilirubin Negative, Urine Urobilinogen Normal, Ur Leukocyte Esterase Negative 04/13/21 06:40: Sodium 145, Potassium 2.8 L, Chloride 108 H, Carbon Dioxide 29.0, Anion Gap 8, BUN 37 H, Creatinine 2.54 H, Estim Creat Clear Calc 34.79, Est GFR (MDRD) Af Amer 34 L, Est GFR (MDRD) Non-Af 28 L, BUN/Creatinine Ratio 14.6, Glucose 134 H, Calcium 8.1 L, Magnesium 1.7 Physical Exam Narrative Physical exam: General: Alert, Oriented x3, Cooperative, appears frail, well hydrated HEENT: Atraumatic Oral: Moist Mucosa Neck: Supple Lungs: Clear to auscultation Cardiovascular: HS I+II, regular, no murmurs Abdomen: Bowel Sounds Present, Soft, Non Tender Extremities: No edema Assessment & Plan Assessment/Plan (1) Hypokalemia: (2) Microscopic hematuria: PLAN: 1. MG, prerenal, nonoliguric secondary to dehydration and cisplatin side effect Improving, currently 2.54, down from 3.3. Admitting Cr was 4.62 Renal ultrasound is unremarkable FeNa is 0.68. Patient with apparent normal renal function in the past Continue on IVF, repeat blood work in am 2. Hypokalemia/hypomagnesemia, replaced, recheck in am 3. Microscopic hematuria, repeat urinalysis shows improved hematuria Will need to follow in the outpatient 4. Severe malnutrition, BMI 215, donation worker consulted, and supplements Charges/Coding Visit Charges Inpatient E&M: 55426 Subs Hosp L2
--- NOTE | 2021-04-13 11:52 | CASEMGMT ---
Social Work SW met with pt and and introduced self and role. Pt is currently admitted without health insurance. SW offered community resources. Pt and denied any needs at this time, stating they can afford prescriptions upon d/c and have spoke with PFS and will work out a payment plan. SW informed that if they change thier minds and would like information, SW can provide written information on assistance programs. RHIANNON De La Vega
--- NOTE | 2021-04-13 12:08 | PN.RENAL_ITS ---
Subjective Subjective Sitting up in bed, at bedside. No overnight events. Denies any vomiting or diarrhea. Still complains of poor taste and appetite. Objective Data Objective Data Vital Signs: Vital Signs Temp Pulse Resp BP Pulse Ox 97.7 F L 72 16 140/70 H 96 04/13/21 09:18 04/13/21 09:18 04/13/21 09:18 04/13/21 09:18 04/13/21 09:18 Oxygen Delivery Method Room Air Weight: 81.6 kg Body Mass Index (BMI) 24.4 Intake & Output: Intake and Output for Last 24 Hours 04/11/21 04/12/21 04/13/21 23:59 23:59 23:59 Intake Total 1840 / 1840 3351.66 / 3351.66 1145 / 1145 Output Total 900 / 900 3050 / 3050 700 / 700 Balance 940 / 940 301.66 / 301.66 445 / 445 Medical Nutrition Assessment Dietitian: Malnutrition Criteria Met Start: 04/11/21 17: 23 Freq: Status: Active Protocol: Document 04/12/21 11:31 RMA (Rec: 04/12/21 11:31 RMA [id number]) Nutrition Malnutrition Evidence of Malnutrition Exists Yes Malnutrition (severe): Acute Illness/Injury Evidenced By Suboptimal Energy Intake ( Severe),Weight Loss (Severe) Clinical Problem Acute Disease or Injury Related Malnutrition Etiology Severe protein/calorie malnutrition in the context of acute illness related to inadequate oral intake; increased energy expenditure/ increased nutrition needs due to catabolic illness Signs/Symptoms as evidenced by 12% wt loss x past 1 month and oral intake meeting less than 50% estimated nutrition needs x past 2-4 weeks Status Active Problem Recommendation Dietitian Recommendations/Changes 1.) Continue regular diet as intake established; monitor need for renal diet restriction. 2.) Continue 120ml ensure enlive 4 times per day w/ medpass as ordered for extra 700 calories and 40 gm protein . 3.) Will add 240ml Rausch ensure clear TID w/ meals as tolerated for extra 720 calories and 24 gm protein per day. 4.) Will add strawberry milkshake (ice cream/whole milk) and vanilla ice cream Q meal tray as tolerated for additional calories and protein as consumed. 5.) May need to consider enteral nutrition support if PO fails and weight loss continues. Lab / Micro Data Result Diagrams: 04/11/21 11:02 04/13/21 06:40 Labs: Laboratory Results - last 24 hr 04/12/21 06:16: Phosphorus 4.4, Magnesium 2.1 04/12/21 17:40: Urine Color Yellow, Urine Clarity Clear, Urine pH 6.0, Ur Speci fic Shipman 1.010, Urine Protein 100 H, Urine Glucose (UA) Normal, Urine Ketones Negative, Urine Occult Blood 50 H, Urine Nitrite Negative, Urine Bilirubin Negative, Urine Urobilinogen Normal, Ur Leukocyte Esterase Negative 04/13/21 06:40: Sodium 145, Potassium 2.8 L, Chloride 108 H, Carbon Dioxide 29.0, Anion Gap 8, BUN 37 H, Creatinine 2.54 H, Estim Creat Clear Calc 34.79, Est GFR (MDRD) Af Amer 34 L, Est GFR (MDRD) Non-Af 28 L, BUN/Creatinine Ratio 14.6, Glucose 134 H, Calcium 8.1 L, Magnesium 1.7 Physical Exam Narrative HEENT: Head is normocephalic, atraumatic. Oral mucosa moist. Lips dry Respiratory: Lung sounds clear anteriorly and posteriorly, no wheezes rhonchi rales Cardiovascular: S1-S2, rhythm and rate regular Extremities: No edema Assessment & Plan Assessment/Plan (1) MG (acute kidney injury): (2) Hypokalemia: PLAN: - Nonoliguric, hypovolemic MG with normal baseline Creatinine. March 14, 2021 creatinine 0.97 mg/dL. Creatinine peaked at 4.62 mg/dL 04/11 and today his creatinine has improved to 2.54mg/dL. Patient received 2doses cisplatin (last dose 04/04) with profound volume depletion/poor oral intake/weight loss (25 pounds over 2-3weeks). No NSAIDs. Renal US no hydro; normal ultrasound of kidneys and bladder. No acute indication for MEDICAL LABORATORY SPECIALIST. Recommend to continue IV fluids for volume expansion. Antiemetics as needed for nausea. Patient does not need any renal diet restrictions. - Initial UA did show occult blood 150, protein 100; repeat UA occult blood 50, protein 100 otherwise benign -K+ 2.8, getting IV replacement 40meq. Magnesium 1.7. Patient does not need any renal diet restrictions. Continue protein supplement as ordered. - encouraged patient up to chair and ambulate
[2021-04-13 13:57] VITALS: BP 137/84; PULSE 61; RESP 16; TEMP 36.7; O2SAT 96
[2021-04-13] MEDS: NYSTATIN 500,000 UNIT/5 ML UDC 500000 UNIT PO ×3 (14:01→21:51)
[2021-04-13] MEDS: Ondansetron ODT 4 MG Tablet 8 MG PO (14:59)
[2021-04-13] MEDS: 0.9% Saline Lock 10 ML Syringe IV (15:52)
[2021-04-13 15:57] VITALS: O2SAT 96
[2021-04-13 16:05] LABS: Anion Gap 6 (5-15); BUN 30 mg/dL (7-18); BUN/Creat Ratio 13.7 RATIO (10-20); Calcium,Total 8.2 mg/dL (8.5-10.1); Chloride 109 mmol/L (98-107); Creatinine, Serum 2.19 mg/dL (0.70-1.30); EST Glomerular Filtration Rate 33 mL/min (>60); Est Glom Filt Rate - Afr Amer 40 mL/min (>60); Estimated Creatinine Clearance 40.36 ml/min; Glucose 107 mg/dL (74-106); Potassium 3.3 mmol/L (3.5-5.1); Sodium Level 145 mmol/L (136-145)
[2021-04-13] MEDS: Potassium Chloride Oral Tablet 20 MEQ 60 MEQ PO (16:13)
[2021-04-13] MEDS: Ondansetron 4 MG/2 ML Vial IV (17:05)
[2021-04-13 19:44] VITALS: BP 148/88; PULSE 62; RESP 18; TEMP 36.8; O2SAT 97
[2021-04-13 23:47] VITALS: BP 124/77; PULSE 63; RESP 18; TEMP 36.8; O2SAT 96
[2021-04-14] MEDS: 0.45% Normal Saline 1,000 ML 100 ML IV (01:57)
[2021-04-14 06:06] VITALS: BP 142/73; PULSE 60; RESP 16; TEMP 36.6; O2SAT 96
[2021-04-14 06:48] LABS: Absolute Lymphocyte Count 0.31 X10^3/uL (0.83-4.51); Absolute Neutrophil Count 4.1 X10^3/uL (2.0-7.7); Basophil# 0.01 X10^3/uL; Basophil% 0.2 % (0-1); Eosinophil# 0.01 X10^3/uL; Eosinophils% 0.2 % (0-5); Hemoglobin 10.2 g/dL (13.0-16.5); Lymphocyte # 0.31 X10^3/ul (0.83-4.51); Lymphocyte % 6.2 % (19-41); Mean Corp Hgb Conc 35.2 g/dL (32-36); Mean Corpuscular Hgb 29.7 pg (27.0-32.0); Mean Corpuscular Volume 84.5 fL (80-94); Mean Platelet Vol. 8.9 fl (6.2-12.0); Monocyte# 0.53 X10^3/uL; Monocyte% 10.6 % (0-10); NRBC Flagged by Analyzer 0 % (0-5); Neutrophil # 4.12 X10^3/uL (2.7-7.7); Neutrophil % 82.4 % (47-70); POSITIVE COUNT YES; POSITIVE DIFFERENTIAL YES; Platelet Count 85 K/mm3 (150-450); RBC Distribution Width CV 11.8 % (11.6-14.6); RBC Distribution Width SD 36.3 fl (35.1-43.9); Red Blood Count 3.43 M/mm3 (4.6-6.2)
[2021-04-14 07:11] LABS: Differential Indicated SCAN CRITERIA MET
[2021-04-14 07:13] LABS: Differential Comment SCANNED
[2021-04-14 07:17] LABS: ALB/GLOB Ratio 0.7 RATIO (0.9-2.4); AST(SGOT) 11 U/L (15-37); Alanine Aminotransfer ALT/SGPT 17 U/L (16-61); Albumin, Serum 2.4 g/dL (3.2-5.0); Alkaline Phosphatase 26 U/L (45-117); Anion Gap 6 (5-15); BUN 23 mg/dL (7-18); BUN/Creat Ratio 11.1 RATIO (10-20); Calcium,Total 8.2 mg/dL (8.5-10.1); Chloride 108 mmol/L (98-107); Creatinine, Serum 2.08 mg/dL (0.70-1.30); EST Glomerular Filtration Rate 35 mL/min (>60); Est Glom Filt Rate - Afr Amer 42 mL/min (>60); Estimated Creatinine Clearance 42.49 ml/min; Globulin 3.6 g/dL (2.2-4.2); Glucose 95 mg/dL (74-106); Magnesium 2.1 mg/dL (1.6-2.6); Potassium 3.4 mmol/L (3.5-5.1); Sodium Level 143 mmol/L (136-145)
[2021-04-14 07:47] VITALS: O2SAT 96
--- NOTE | 2021-04-14 08:07 | PCM.DC ---
Discharge Instructions Diet Discharge Diet: No restrictions Activity Discharge Activity: Return to Normal Activity Follow Up Care Test Results: Test results from this visit will be discussed in further detail at your follow-up appointment, if applicable. Discharge Plan Admission Admit Date/Time: 04/11/21 13:03 Primary Reason for Your Visit: Acute kidney injury Attending Provider: Tara Forte Primary Care Provider: Maritza Physician,No Primary Consulting Providers: Boston Briceno Instructions Additional Instructions / Restrictions: Continue to keep yourself hydrated. Take note of changes to your medications. Follow-up with nephrology within a week for repeat kidney function test. Follow-up with Dr. Petersen as scheduled. Discharge Orders/Prescriptions Prescriptions: New magnesium chloride [Mag 64] 64 mg Tablet,Delayed Release (Dr/Ec) 128 mg PO DAILY 5 Days Qty: 10 RF: 0 potassium chloride 20 mEq tablet extended release 20 meq PO DAILY 5 Days Qty: 5 RF: 0 Continued nystatin 100,000 unit/mL Suspension 500,000 unit BUCCAL 4X/DAY RF: 0 ondansetron 8 mg Tablet,Disintegrating 8 mg PO Q8H PRN (Reason: Nausea) RF: 0 promethazine 25 mg Tablet 25 mg PO Q6H PRN (Reason: Nausea) RF: 0 Referrals / Follow Up: Care Physician,No Primary [Primary Care Provider] - Within 2 Weeks Boston Briceno MD [STAFF PHYSICIAN] - Within 1 Week Reyes Petersen DO [STAFF PHYSICIAN] - Within 1 Week Disposition Disposition (needs filled in before D/C Order can be placed): Home, Self Care
--- NOTE | 2021-04-14 09:30 | DS.PCM_ITS ---
Providers Date of Admission: 04/11/21 Date of Discharge: 04/14/21 Primary Care Physician: Pavithra Primary Care Phys Consultations 04/11/21 14:01 Consult: Nephrology Routine Consulting Provider: Boston Briceno Reason for Consult: MG 2/2 cisplatin EMERGENT Consult: No MD Notified: Yes Date Notified: 04/11/21 Time Notified: 13:09 Method of Notification: Verbal Method of Consult:: In-Person Comments:: ashley GARCIA Reason For Visit: CISPLATIN INDUCED MG Diagnosis Discharge Diagnosis (1) Hypokalemia: Status: Acute Code(s): E87.6 - Hypokalemia (2) Microscopic hematuria: Status: Acute Code(s): R31.29 - Other microscopic hematuria (3) Hypomagnesemia: Status: Resolved Code(s): E83.42 - Hypomagnesemia (4) MG (acute kidney injury): Status: Acute Code(s): N17.9 - Acute kidney failure, unspecified (5) Severe malnutrition: Status: Acute Code(s): E43 - Unspecified severe protein-calorie malnutrition Medications at Discharge Home Medications nystatin 500,000 unit BUCCAL 4X/DAY 04/11/21 ondansetron 8 mg PO Q8H PRN 04/11/21 promethazine 25 mg PO Q6H PRN 04/11/21 magnesium chloride [Mag 64] 128 mg PO DAILY 5 Days #10 tab 04/14/21 potassium chloride 20 meq PO DAILY 5 Days #5 tab 04/14/21 Hospital Course Operations None Procedures None Summary of Care Provided Minutes Spent on Discharge: 45 Hospital Course: 60-year-old male with past medical history of squamous cell carcinoma of the throat, undergoing chemotherapy and radiation. He had a second cycle of cisplatin. Patient follows with Dr. Petersen. His baseline creatinine is around 1. Patient has been having poor oral intake as he states is abnormal in his been having nausea with his chemotherapy. He admits to losing about 20 pounds since start of chemotherapy. He presented with generalized weakness and fatigue. He was sent in from his oncologist office with an abnormal elevated creatinine. His admitting creatinine was 4.62, BUN was 57. Potassium was 3.3. He was admitted to the [facility] floor and started on IV fluids. Nephrology was consulted. Renal ultrasound was unremarkable. His FeNa was 0.68, suggestive of a prerenal etiology. Patient's creatinine continue to improve. His urine output was nonoliguric. He had electrolyte imbalances that were replaced. Patient's creatinine at discharge was 2.08. He was discharged on a 5-day's of potassium and magnesium. He will follow up with nephrology as well as oncology in the outpatient. He will get repeat blood work. Physical Exam Narrative Physical exam: General: Alert, Oriented x3, Cooperative, appears improved, well hydrated HEENT: Atraumatic Oral: Moist Mucosa Neck: Supple Lungs: Clear to auscultation Cardiovascular: HS I+II, regular, no murmurs Abdomen: Bowel Sounds Present, Soft, Non Tender Extremities: No edema Medical Records Data Medical Nutrition Assessment Dietitian: Malnutrition Criteria Met Start: 04/11/21 17:23 Freq: Status: Active Protocol: Document 04/12/21 11:31 RMA (Rec: 04/12/21 11:31 RMA [id number]) Nutrition Malnutrition Evidence of Malnutrition Exists Yes Malnutrition (severe): Acute Illness/Injury Evidenced By Suboptimal Energy Intake ( Severe),Weight Loss (Severe) Clinical Problem Acute Disease or Injury Related Malnutrition Etiology Severe protein/calorie malnutrition in the context of acute illness related to inadequate oral intake; increased energy expenditure/ increased nutrition needs due to catabolic illness Signs/Symptoms as evidenced by 12% wt loss x past 1 month and oral intake meeting less than 50% estimated nutrition needs x past 2-4 weeks Status Active Problem Recommendation Dietitian Recommendations/Changes 1.) Continue regular diet as intake established; monitor need for renal diet restriction. 2.) Continue 120ml ensure enlive 4 times per day w/ medpass as ordered for extra 700 calories and 40 gm protein . 3.) Will add 240ml Rausch ensure clear TID w/ meals as tolerated for extra 720 calories and 24 gm protein per day. 4.) Will add strawberry milkshake (ice cream/whole milk) and vanilla ice cream Q meal tray as tolerated for additional calories and protein as consumed. 5.) May need to consider enteral nutrition support if PO fails and weight loss continues. Weight / BMI Weight Weight: 81.6 kg Body Mass Index (BMI) 24.4 ABG / Lab / Microbiology Data Result Diagrams: 04/14/21 06:30 04/14/21 06:30 Laboratory: Laboratory Results - last 24 hr 04/13/21 15:39: Sodium 145, Potassium 3.3 L, Chloride 109 H, Carbon Dioxide 30.0, Anion Gap 6, BUN 30 H, Creatinine 2.19 H, Estim Creat Clear Calc 40.36, Est GFR (MDRD) Af Amer 40 L, Est GFR (MDRD) Non-Af 33 L, BUN/Creatinine Ratio 13.7, Glucose 107 H, Calcium 8.2 L 04/14/21 06:30: WBC 5.0, RBC 3.43 L, Hgb 10.2 L, Hct 29.0 L, MCV 84.5, MCH 29.7, MCHC 35.2, RDW Std Deviation 36.3, RDW Coeff of Milli 11.8, Plt Count 85 L, MPV 8.9, Immature Gran % (Auto) 0.400, Neut % (Auto) 82.4 H, Lymph % (Auto) 6.2 L, [place] % (Auto) 10.6 H, Eos % (Auto) 0.2, Baso % (Auto) 0.2, Absolute Neuts (auto) 4.1, Absolute Lymphs (auto) 0.31 L, Nucleated RBC % 0, Differential Comment SCANNED 04/14/21 06:30: Sodium 143, Potassium 3.4 L, Chloride 108 H, Carbon Dioxide 29.0, Anion Gap 6, BUN 23 H, Creatinine 2.08 H, Estim Creat Clear Calc 42.49, Est GFR (MDRD) Af Amer 42 L, Est GFR (MDRD) Non-Af 35 L, BUN/Creatinine Ratio 11.1, Glucose 95, Calcium 8.2 L, Magnesium 2.1, Total Bilirubin 0.30, AST 11 L, ALT 17, Alkaline Phosphatase 26 L, Total Protein 6.0 L, Albumin 2.4 L, Globulin 3.6, Albumin/Globulin Ratio 0.7 L D/C Instructions Discharge Diet: No restrictions Meaningful Use Info Meaningful Use Diagnoses (Choose all that apply): None applicable Discharge Plan Admission Admit Date/Time: 04/11/21 13:03 Primary Reason for Your Visit: Acute kidney injury Attending Provider: Tara Forte Primary Care Provider: Care Physician,No Primary Consulting Providers: Boston Briceno Instructions Additional Instructions / Restrictions: Continue to keep yourself hydrated. Take note of changes to your medications. Follow-up with nephrology within a week for repeat kidney function test. Follow-up with Dr. Petersen as scheduled. Discharge Orders/Prescriptions Prescriptions: New magnesium chloride [Mag 64] 64 mg Tablet,Delayed Release (Dr/Ec) 128 mg PO DAILY 5 Days Qty: 10 RF: 0 potassium chloride 20 mEq tablet extended release 20 meq PO DAILY 5 Days Qty: 5 RF: 0 Continued nystatin 100,000 unit/mL Suspension 500,000 unit BUCCAL 4X/DAY RF: 0 ondansetron 8 mg Tablet,Disintegrating 8 mg PO Q8H PRN (Reason: Nausea) RF: 0 promethazine 25 mg Tablet 25 mg PO Q6H PRN (Reason: Nausea) RF: 0 Referrals / Follow Up: Boston Briceno MD [STAFF PHYSICIAN] - Within 1 Week Reyes Petersen DO [STAFF PHYSICIAN] - Within 1 Week Care Physician,No Primary [Primary Care Provider] - Within 2 Weeks Disposition Disposition (needs filled in before D/C Order can be placed): Home, Self Care Charges/Coding Visit Charges Inpatient E&M: 26684 Disch Hosp
--- NOTE | 2021-04-14 09:48 | PN.RENAL_ITS ---
Subjective Subjective No complaints of vomiting or diarrhea. Still states appetite is poor, and that he needs to take small sips and small bites to avoid nausea. Objective Data Objective Data Vital Signs: Vital Signs Temp Pulse Resp BP Pulse Ox 97.9 F 60 16 142/73 H 96 04/14/21 06:06 04/14/21 06:06 04/14/21 06:06 04/14/21 06:06 04/14/21 07:47 Oxygen Delivery Method Room Air Weight: 81.6 kg Body Mass Index (BMI) 24.4 Intake & Output: Intake and Output for Last 24 Hours 04/12/21 04/13/21 04/14/21 23:59 23:59 23:59 Intake Total 3351.66 / 3351.66 3829.00 / 3829.00 1393.33 / 1393.33 Output Total 3050 / 3050 2850 / 2850 700 / 700 Balance 301.66 / 301.66 979.00 / 979.00 693.33 / 693.33 Medical Nutrition Assessment Dietitian: Malnutrition Criteria Met Start: 04/11/21 17:23 Freq: Status: Active Protocol: Document 04/12/21 11:31 RMA (Rec: 04/12/21 11:31 RMA [id number]) Nutrition Malnutrition Evidence of Malnutrition Exists Yes Malnutrition (severe): Acute Illness/Injury Evidenced By Suboptimal Energy Intake ( Severe),Weight Loss (Severe) Clinical Problem Acute Disease or Injury Related Malnutrition Etiology Severe protein/calorie malnutrition in the context of acute illness related to inadequate oral intake; increased energy expenditure/ increased nutrition needs due to catabolic illness Signs/Symptoms as evidenced by 12% wt loss x past 1 month and oral intake meeting less than 50% estimated nutrition needs x past 2-4 weeks Status Active Problem Recommendation Dietitian Recommendations/Changes 1.) Continue regular diet as intake established; monitor need for renal diet restriction. 2.) Continue 120ml ensure enlive 4 times per day w/ medpass as ordered for extra 700 calories and 40 gm protein . 3.) Will add 240ml Rausch ensure clear TID w/ meals as tolerated for extra 720 calories and 24 gm protein per day. 4.) Will add strawberry milkshake (ice cream/whole milk) and vanilla ice cream Q meal tray as tolerated for additional calories and protein as consumed. 5.) May need to consider enteral nutrition support if PO fails and weight loss continues. Lab / Micro Data Result Diagrams: 04/14/21 06:30 04/14/21 06:30 Labs: Laboratory Results - last 24 hr 04/13/21 15:39: Sodium 145, Potassium 3.3 L, Chloride 109 H, Carbon Dioxide 30.0, Anion Gap 6, BUN 30 H, Creatinine 2.19 H, Estim Creat Clear Calc 40.36, Est GFR (MDRD) Af Amer 40 L, Est GFR (MDRD) Non-Af 33 L, BUN/Creatinine Ratio 13.7, Glucose 107 H, Calcium 8.2 L 04/14/21 06:30: WBC 5.0, RBC 3.43 L, Hgb 10.2 L, Hct 29.0 L, MCV 84.5, MCH 29.7, MCHC 35.2, RDW Std Deviation 36.3, RDW Coeff of Milli 11.8, Plt Count 85 L, MPV 8.9, Immature Gran % (Auto) 0.400, Neut % (Auto) 82.4 H, Lymph % (Auto) 6.2 L, [place] % (Auto) 10.6 H, Eos % (Auto) 0.2, Baso % (Auto) 0.2, Absolute Neuts (auto) 4.1, Absolute Lymphs (auto) 0.31 L, Nucleated RBC % 0, Differential Comment SCANNED 04/14/21 06:30: Sodium 143, Potassium 3.4 L, Chloride 108 H, Carbon Dioxide 29.0, Anion Gap 6, BUN 23 H, Creatinine 2.08 H, Estim Creat Clear Calc 42.49, Est GFR (MDRD) Af Amer 42 L, Est GFR (MDRD) Non-Af 35 L, BUN/Creatinine Ratio 11.1, Glucose 95, Calcium 8.2 L, Magnesium 2.1, Total Bilirubin 0.30, AST 11 L, ALT 17, Alkaline Phosphatase 26 L, Total Protein 6.0 L, Albumin 2.4 L, Globulin 3.6, Albumin/Globulin Ratio 0.7 L Physical Exam Narrative HEENT: Head is normocephalic, atraumatic. Oral mucosa moist. Respiratory: Lung sounds clear anteriorly and posteriorly, no wheezes rhonchi rales Cardiovascular: S1-S2, rhythm and rate regular Extremities: No edema Assessment & Plan Assessment/Plan (1) MG (acute kidney injury): (2) Hypokalemia: PLAN: - Nonoliguric, hypovolemic MG with normal baseline Creatinine. March 14, 2021 creatinine 0.97 mg/dL. Creatinine peaked at 4.62 mg/dL 04/11 and today his creatinine has improved to 2.08mg/dL. Patient received 2doses cisplatin (last dose 04/04) with profound volume depletion/poor oral intake/weight loss (25 pounds over 2-3weeks). No NSAIDs. Renal US no hydro; normal ultrasound of kidneys and bladder. No acute indication for [employer]. Renal function improved with IV fluids. Antiemetics as needed for nausea. Patient does not need any renal diet restrictions. - Initial UA did show occult blood 150, protein 100; repeat UA occult blood 50, protein 100 otherwise benign -K+ 3.4, mag 2.1. Getting replacement and to be discharged with 5 days of potassium and magnesium. Patient does not need any renal diet restrictions. Co ntinue protein supplement as ordered. - discussed with patient no NSAIDs -Discussed with primary team, ok for discharge per renal, patient to follow-up in [place] office.
[2021-04-14] MEDS: NYSTATIN 500,000 UNIT/5 ML UDC 500000 UNIT PO (09:52)
[2021-04-14] MEDS: Potassium Chloride Oral Tablet 20 MEQ 60 MEQ PO (09:52)
[2021-04-14] MEDS: Magnesium Chloride 64 MG Delay Rel.Tablet 128 MG PO (09:53)
[2021-04-14 10:06] VITALS: PULSE 69; RESP 18; TEMP 36.4; O2SAT 97
[2021-04-14 12:05] VITALS: BP 130/84
[2021-04-14 12:09] VITALS: BP 130/84; PULSE 69; RESP 18; TEMP 36.6; O2SAT 97
== END 2021-04-14 12:22 | disposition home or self-care (01) | DRG 682 ==
LOC: ED 13:06 → MS2 13:49
PROVIDERS: Nurse Practitioner Adult Health; Admitting Provider Internal Medicine; Emergency Provider Emergency Medicine; Visit Provider Internal Medicine
DX: N17.8 Other acute kidney failure (principal); E43 Unspecified severe protein-calorie malnutrition; C14.0 Malignant neoplasm of pharynx, unspecified; E87.6 Hypokalemia; R31.29 Other microscopic hematuria; E86.1 Hypovolemia; T45.1X1A Poisoning by antineoplastic and immunosuppressive drugs, accidental (unintentional), initial encounter; N14.1 Nephropathy induced by other drugs, medicaments and biological substances; E86.0 Dehydration; E83.42 Hypomagnesemia; Z79.899 Other long term (current) drug therapy; Z92.3 Personal history of irradiation; Z68.24 Body mass index [BMI] 24.0-24.9, adult
CPT/HCPCS: 36415; 76770; 80048; 80053; 81001; 81002; 82570; 83735; 84100; 84300; 84443; 85025; 93005; 97802; 99285; J7120; A4216; J2405

== ENCOUNTER → 2021-06-02 12:34 | Outpatient (CLI) | payer SELFPAY ==
[2021-06-02 13:21] LABS: Anion Gap 8 (5-15); BUN 7 mg/dL (7-18); BUN/Creat Ratio 6.9 RATIO (10-20); Calcium,Total 9.4 mg/dL (8.5-10.1); Chloride 109 mmol/L (98-107); Creatinine, Serum 1.01 mg/dL (0.70-1.30); EST Glomerular Filtration Rate 80 mL/min (>60); Est Glom Filt Rate - Afr Amer 97 mL/min (>60); Glucose 118 mg/dL (74-106); Potassium 3.7 mmol/L (3.5-5.1); Sodium Level 142 mmol/L (136-145)
== END ==
PROVIDERS: Visit Provider Internal Medicine Hematology & Oncology
DX: C09.9 Malignant neoplasm of tonsil, unspecified (principal)
CPT/HCPCS: 80048

== ENCOUNTER 2023-11-24 13:30 | Emergency (ER) | payer SELFPAY ==
[2023-11-24 13:30] VITALS: BP 135/100; PULSE 69; RESP 14; TEMP 36.6; O2SAT 96; BMI 26.9
--- NOTE | 2023-11-24 13:43 | EKG12_ITS ---
Test Reason : DIZZINESS Blood Pressure : / mmHG Vent. Rate : 058 BPM Atrial Rate : 058 BPM P-R Int : 156 ms QRS Dur : 088 ms QT Int : 402 ms P-R-T Axes : 048 028 049 degrees QTc Int : 394 ms Sinus bradycardia Otherwise normal ECG Confirmed by PHILIP DELGADO, DEMARCUS ([id number]), scientific publications editor KIMANI CHOI ([id number]) on 11/26/2023 9:50:17 AM Referred By: Confirmed By:DEMARCUS PALACIOS MD
--- NOTE | 2023-11-24 13:43 | CT_ITS ---
INDICATION: dizziness EXAMINATION: CT BRAIN - CT Head or Brain W/O Contrast Injection TECHNIQUE: Multiple axial images were obtained of the head without intravenous contrast. The protocol utilizes one or more of the following dose reduction techniques: automated exposure control, adjustment of mA and/or kV according to patient size,and/or use of iterative reconstruction technique. IV Contrast dosage and agent: None. RADIATION DOSAGE (If Supplied By Facility): CTDIvol = ( 44.99 ) mGy, DLP = ( 829.85 ) mGycm COMPARISON: No relevant prior comparison study available FINDINGS: BRAIN PARENCHYMA: No intra- or extra-axial hemorrhage. No evidence of acute infarct. No intracranial mass or mass effect. There is preservation of the barrera/white matter interface. Posterior fossa structures are unremarkable. CSF SPACES: Appropriate for age. No hydrocephalus. Basal cisterns are patent. CALVARIUM, SKULL BASE, PARANASAL SINUSES AND MASTOID AIR CELLS: Minimal mucosal thickening of the maxillary sinuses. No discrete lytic or blastic abnormalities. ORBITS: Both globes, extraocular muscles, optic nerves and retrobulbar fat appear unremarkable. ASPECTS Score for Acute Strokes: 10 CT/Brain/Head without Contrast IMPRESSION: No acute intracranial process. Electronically Signed: Yvan Cabrera MD at 14:54 EDT ,
--- NOTE | 2023-11-24 13:45 | EDS_ITS ---
HPI History of Present Illness Chief Complaint: Dizziness Detail of Chief Complaint: Dizziness Informant: patient Narrative Narrative: Patient presents to the emergency department complaint of dizziness that he noticed 5 days ago. Patient states that he was working under some cabinets when he got acutely dizzy. Patient states that he spent about 3 hours on the couch. He felt somewhat sweaty with it. Did not vomit. Symptoms recurred again on Sunday. Symptoms have been off-and-on and then today he was moving some mattresses and felt dizzy again. Describes also lightheaded feeling not so much vertiginous symptoms. Patient denies recent illness. He denies falls or head injuries. He describes minimal headache. [facility] Medical History (Updated 11/24/23 @ 15:[address] Gary Gates DO) Throat cancer Home Medications ?Medication ?Instructions ?Recorded ?Last Taken ?Type nystatin 100,000 unit/mL oral 500,000 unit buccal 4X/DAY thrush 04/11/21 04/10/21 History suspension ondansetron 8 mg disintegrating 8 mg PO Q8H PRN Nausea 04/11/21 04/10/21 History tablet promethazine 25 mg tablet 25 mg PO Q6H PRN Nausea 04/11/21 04/10/21 History magnesium chloride 64 mg 128 mg (2 x 64 mg) PO DAILY 5 days 04/14/21 Unknown Rx (magnesium chloride) #10 tabs tablet,delayed release (Mag 64) potassium chloride 20 mEq 20 meq PO DAILY 5 days #5 tabs 04/14/21 Unknown Rx tablet,extended release meclizine 25 mg chewable tablet 25 mg PO TID PRN dizziness #20 tabs 11/24/23 Unknown Rx (Antivert) Allergy/AdvReac Type Severity Reaction Status Date / Time No Known Allergies Allergy Verified 11/24/23 13:32 Social History (Updated 04/11/21 @ 13:[address] 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 Smoking Status: Never smoker alcohol intake: never substance use type: does not use ROS ROS ED Review of Systems ROS Unobtainable: other Constitutional Constitutional ED: Reports lethargy; Denies chills, fever(s), sweats or weight loss Eyes Eyes: Denies blurry vision, change in vision or diplopia ENT ENT ED: Denies rhinorrhea or sore throat Cardiovascular Cardiovascular: Denies chest pain, orthopnea or racing heartbeat Respiratory/Chest Respiratory/Chest: Denies cough, dyspnea, dyspnea on exertion, orthopnea or sputum Gastrointestinal Gastrointestinal: Reports other; Denies abdominal pain, diarrhea, nausea or vomiting Genitourinary Genitourinary ED: Denies dysuria, hematuria or urinary frequency Musculoskeletal Musculoskeletal: Denies arthralgias, back pain, myalgias or neck pain Integumentary Denies abscess, Abrasions or rash Neurologic Neurologic: Reports other Details: Dizziness ; Denies headache(s) or weakness Psychiatric Psychiatric: Denies anxiety, depression or suicidal thoughts Endocrine Endocrinology: Denies polydipsia, polyphagia or polyuria Hematologic/Lymphatic Hematologic/Lymphatic: Denies easy bleeding, easy bruising or lymphadenopathy Allergic/Immunologic Allergic/Immunologic ED: Denies mouth swelling, tongue swelling or urticaria EXAM Physical Exam Const Vital Signs: 11/24/23 13:30 11/24/23 13:30 11/24/23 14:30 Temperature 97.8 F Temperature Source Temporal Pulse Rate 69 69 Pulse Rate [Lying] 54 L Pulse Rate [Sitting (for 1 minute prior to obtaining)] 58 L Pulse Rate [Standing (for 1 minute prior to obtaining)] 56 L Respiratory Rate 14 14 Blood Pressure 135/100 H 135/100 H Blood Pressure [Lying] 136/73 H Blood Pressure [Sitting (for 1 minute prior to obtaining)] 144/88 H Blood Pressure [Standing (for 1 minute prior to obtaining)] 147/88 H Blood Pressure Mean 111 111 Blood Pressure Mean [Lying] 94 Blood Pressure Mean [Sitting (for 1 minute prior to obtaining)] 106 Blood Pressure Mean [Standing (for 1 minute prior to obtaining)] 107 Pulse Ox 96 96 Oxygen Delivery Method Room Air Positive well nourished and well developed General Appearance ED: well developed and NAD HEENT Reports TM's clear and moist mucous membranes normocephalic and atraumatic; Negative for trauma or tenderness Tympanic Membrane ED: Yes TM's clear Eyes PERRL and EOMs intact bilaterally General Eye ED: Negative for pale conjunctiva or scleral icterus Neck no lymphadenopathy, supple and no JVD General: Negative for tenderness Chest Wall inspection of chest normal and palpation of chest normal Chest: Negative for tenderness Resp normal respiratory effort and clear to auscultation bilaterally Effort and Inspection: Negative for respiratory distress or pain with movement Auscultation: Negative for rhonchi, wheezes or diminished lung sounds Cardio regular rate, regular rhythm, S1 normal heart sound, S2 normal heart sound and no murmurs Peripheral Pulses: pulses 2+ throughout GI normal to inspection, nondistended, normoactive bowel sounds, soft to palpation, non-tender, non-distended and no masses Back/Spine no CVA tenderness and no thoracic nor lumbar tenderness Extremity normal to inspection General Extremety ED: Negative for edema General Extremity: Negative for edema Neuro oriented x3, CN's II-XII intact bilaterally, no sensory deficits noted and gait normal Neuro Narrative: Hallpike maneuver performed and there was no evidence of nystagmus. Patient was symptomatic more with sitting up. But again no nystagmus noted. Finger-nose and heel tello testing within normal limits, negative Romberg, negative pronator drift, fundi benign Sensorium / Orientation: awake, alert, oriented to person, oriented to place and oriented to time Motor Exam: strength 5/5 throughout and strength abnormal Psych mental status grossly normal Skin no rashes or lesions noted and no wounds MDM MDM MDM Narrative Medical decision making narrative: Patient with complaint of dizziness. Etiology uncertain. Not classic for vertigo. Will obtain lab work as well as CT scan of his brain. Will give patient Antivert and a liter mostly fluid bolus. Will obtain orthostatic vital signs. EKG obtained arrival showed a sinus rhythm with a rate of 58 bpm with no acute ST segment changes. CBC with differential count of 4.5 with hemoglobin 13.7 platelet count of 217. Chemistries unremarkable. Troponin normal at 19. CT scan of the brain without contrast was normal. Orthostatic vital signs were negative. I did give patient Antivert 25 mg p.o. and he felt markedly improved and states his symptoms have resolved and feels back to normal. He tells me his brother has vertigo. Patient also tells me that he has had ringing in the ears ever since he had chemotherapy and radiation. He had some hearing loss. This brings into consideration M?ni?re's disease. Will refer to ENT for follow-up. Will write him a prescription for Antivert. Lab Data Labs: Laboratory Results - last 24 hr 11/24/23 14:00 WBC 4.5 RBC 4.52 L Hgb 13.7 Hct 39.9 L MCV 88.3 MCH 30.3 MCHC 34.3 RDW Std Deviation 41.5 RDW Coeff of Milli 12.9 Plt Count 217 MPV 8.8 Immature Gran % (Auto) 0.200 Neut % (Auto) 67.6 Lymph % (Auto) 17.9 L [place] % (Auto) 7.8 Eos % (Auto) 6.1 H Baso % (Auto) 0.4 Absolute Neuts (auto) 3.0 Absolute Lymphs (auto) 0.80 L Nucleated RBC % 0 Sodium 140 Potassium 3.5 Chloride 110 H Carbon Dioxide 25.0 Anion Gap 5 BUN 18 Creatinine 0.94 Estim Creat Clear Calc 85.21 Est GFR (MDRD) Af Amer 105 Est GFR (MDRD) Non-Af 86 BUN/Creatinine Ratio 19.1 Glucose 97 Calcium 8.4 L Troponin I High Sens 19 Radiography Diagnostic Testing: Clinical Impression(s) from Imaging Studies Brain CT 11/24/23 13:43 IMPRESSION: No acute intracranial process. Electronically Signed: Yvan Cabrera MD at 14:54 EDT , Discharge Plan Triage Chief Complaint: Dizziness ED Provider: Gary Gates Dx/Rx/DC Orders Clinical Impression: Vertigo Instructions: ED Meniere's Disease, ED Vertigo, Unspecified Prescriptions: New meclizine [Antivert] 25 mg tablet,chewable 25 mg PO TID PRN (Reason: dizziness) Qty: 20 0RF No Action nystatin 100,000 unit/mL Suspension 500,000 unit BUCCAL 4X/DAY ondansetron 8 mg Tablet,Disintegrating 8 mg PO Q8H PRN (Reason: Nausea) promethazine 25 mg Tablet 25 mg PO Q6H PRN (Reason: Nausea) magnesium chloride [Mag 64] 64 mg Tablet,Delayed Release (Dr/Ec) 128 mg PO DAILY 5 Days Qty: 10 0RF potassium chloride 20 mEq tablet extended release 20 meq PO DAILY 5 Days Qty: 5 0RF Primary Care Provider: Ciara Mcneal Referrals: Justin Martinez MD [Med Staff - Active Staff] - 5-7 Days Ciara Mcneal MD [Primary Care Provider] - Print Language: Micronesian Disposition Disposition: Home, Self Care
[2023-11-24] MEDS: Meclizine HCl 25 MG Tablet PO (14:07)
[2023-11-24] MEDS: 0.9% Normal Saline (1000mL) 1,000 ML 1000 ML IV (14:07)
[2023-11-24 14:08] LABS: Basophil# 0.02 X10^3/uL; Basophil% 0.4 % (0-1); Eosinophil# 0.27 X10^3/uL; Eosinophils% 6.1 % (0-5); Hematocrit 39.9 % (40-54); Hemoglobin 13.7 g/dL (13.0-16.5); Lymphocyte % 17.9 % (19-41); Mean Corp Hgb Conc 34.3 g/dL (32-36); Mean Corpuscular Hgb 30.3 pg (27.0-32.0); Mean Corpuscular Volume 88.3 fL (80-94); Mean Platelet Vol. 8.8 fl (6.2-12.0); Monocyte# 0.35 X10^3/uL; Monocyte% 7.8 % (0-10); NRBC Flagged by Analyzer 0 % (0-5); Neutrophil # 3.01 X10^3/uL (2.7-7.7); Neutrophil % 67.6 % (47-70); Platelet Count 217 K/mm3 (150-450); RBC Distribution Width CV 12.9 % (11.6-14.6); RBC Distribution Width SD 41.5 fl (35.1-43.9); Red Blood Count 4.52 M/mm3 (4.6-6.2); White Blood Count 4.5 K/mm3 (4.4-11.0)
[2023-11-24 14:26] LABS: Anion Gap 5 (5-15); BUN 18 mg/dL (7-18); BUN/Creat Ratio 19.1 RATIO (10-20); Calcium,Total 8.4 mg/dL (8.5-10.1); Chloride 110 mmol/L (98-107); Creatinine, Serum 0.94 mg/dL (0.70-1.30); EST Glomerular Filtration Rate 86 mL/min (>60); Est Glom Filt Rate - Afr Amer 105 mL/min (>60); Estimated Creatinine Clearance 85.21 ml/min; Glucose 97 mg/dL (74-106); Potassium 3.5 mmol/L (3.5-5.1); Sodium Level 140 mmol/L (136-145); Troponin-I HS 19 pg/mL (3.0-78.0)
[2023-11-24 14:30] VITALS: BP 136/73; BP 144/88; BP 147/88; PULSE 54; PULSE 56; PULSE 58
[2023-11-24 15:15] VITALS: BP 132/72; PULSE 55; RESP 20; TEMP 36.4; O2SAT 98
== END 2023-11-24 15:25 | disposition home or self-care (01) ==
PROVIDERS: Emergency Provider Emergency Medicine; PCP Internal Medicine Infectious Disease; Visit Provider Emergency Medicine
DX: R42 Dizziness and giddiness (principal)
CPT/HCPCS: 70450; 80048; 84484; 85025; 93005; 99285; J7030; A4216